=== PATIENT | male | born 1995 | race African-American/Black ===

== ENCOUNTER 2019-11-09 08:36 | Emergency (ER) | payer SELFPAY ==
[~2019-11-09] VITALS: Ht 193 cm; Wt 85.5 kg
[~2019-11-09 08:36] MED LIST: ALBU8HFA PO; AZIT-21 PO; LIDO20SO16 PO
[2019-11-09] MEDS ORDERED: ketorolac trometh. 30mg/ml inj. IM ONE (10:55)
[2019-11-09] MEDS ORDERED: SUMAtriptan 25 MG tablet PO ONE (10:55)
[2019-11-09] MEDS ORDERED: diphenhydrAMINE 25mg capsule PO ONE (10:55)
[2019-11-09] MEDS ORDERED: ondansetron 4mg rapidly disintigrating tab PO ONE (11:00)
[2019-11-09 11:25] VITALS: BP 159/86
[2019-11-09] MEDS ORDERED: IBUP-1985 PO (11:59)
== END 2019-11-09 12:35 | disposition home or self-care (01) ==
LOC: ER 08:37
DX: R51 Headache (principal); H53.149 Visual discomfort, unspecified; R07.89 Other chest pain; R11.0 Nausea; F12.90 Cannabis use, unspecified, uncomplicated; Z88.5 Allergy status to narcotic agent; Z79.2 Long term (current) use of antibiotics; Z79.899 Other long term (current) drug therapy
CPT/HCPCS: 71045; 87502; 87503; 93005; 96372; 99285; J1885; Q0163

== ENCOUNTER 2020-10-21 16:36 | Emergency (ER) | payer MEDICAID ==
[~2020-10-21] VITALS: Ht 190.5 cm; Wt 94.0 kg
[~2020-10-21 16:36] MED LIST changes: +IBUP-1985 PO
[2020-10-21 17:14] LABS: BASOPHILS # (AUTO) 0.1 X10'3 (0-0.2); BASOPHILS % (AUTO) 1.1 % (0-1); EOSINOPHILS # (AUTO) 0.2 X10'3 (0-0.9); EOSINOPHILS % (AUTO) 2.6 % (0-6); HEMATOCRIT 41.8 % (42.0-52.0); HEMOGLOBIN 14.3 g/dl (14.0-17.9); LYMPHOCYTES # (AUTO) 2.6 X10'3 (1.1-4.8); LYMPHOCYTES % (AUTO) 35.7 % (21-51); MEAN CORPUSCULAR HEMOGLOBIN 29.6 PG (27.0-31.0); MEAN CORPUSCULAR HGB CONC 34.2 g/dL (33.0-36.5); MEAN CORPUSCULAR VOLUME 86.5 FL (78-98); MONOCYTES # (AUTO) 0.7 X10'3 (0-0.9); MONOCYTES % (AUTO) 9.8 % (2-12); NEUTROPHILS # (AUTO) 3.8 X10'3 (1.8-7.7); NEUTROPHILS % (AUTO) 50.8 % (42-75); PLATELET COUNT 267 X10'3 (140-440); RED BLOOD COUNT 4.83 X10'6 (4.70-6.10); RED CELL DISTRIBUTION WIDTH 13.3 % (11.5-14.5); WHITE BLOOD COUNT 7.4 X10'3 (4.5-11.0)
[2020-10-21 17:27] LABS: ALANINE AMINOTRANSFERASE 35 U/L (12-78); ALBUMIN 4.3 G/DL (3.4-5.0); ALBUMIN/GLOBULIN RATIO 1.3 (1.1-1.5); ALKALINE PHOSPHATASE 76 IU/L (46-116); ANION GAP 7 (8-16); ASPARTATE AMINO TRANSFERASE 28 U/L (10-37); BILIRUBIN,TOTAL 0.3 MG/DL (0.1-1.0); BLOOD UREA NITROGEN 24 MG/DL (7-18); BUN/CREATININE RATIO 21.8 (5.4-32.0); CALCIUM 9.4 MG/DL (8.5-10.1); CHLORIDE 105 MMOL/L (99-107); ETHANOL < 0.010 GM/DL (0.0-0.010); GLUCOSE 104 MG/DL (70-104); POTASSIUM 3.8 MMOL/L (3.5-5.1); SODIUM 142 MMOL/L (135-145); TOTAL CARBON DIOXIDE 29.7 MMOL/L (24-32); TOTAL PROTEIN 7.6 G/DL (6.4-8.2); eGFR > 90 ML/MIN
[2020-10-21] MEDS ORDERED: NO HOME MEDS (17:42)
--- NOTE | 2020-10-21 17:50 | NUR ---
Khalida monae in [facility] - 10/21/20 at 1750 by SIMIN CALL FROM LAB C-DIFF NEG
--- NOTE | 2020-10-21 17:52 | NUR ---
PT ASKED TO PROVIDE A URINE SAMPLE, PT REPORTS THAT HE DOES NOT HAVE TO GO NOW.
--- NOTE | 2020-10-21 17:58 | NUR ---
PT AMBULATED FROM BED 8 TO BED 20 ESCORTED BY SHIRIN ALVAREZ
--- NOTE | 2020-10-21 18:19 | NUR ---
PT RESTING ON BACK RR EQUAL AND UNLABORED
--- NOTE | 2020-10-21 19:00 | NUR ---
Pt resting quietly, respirations normal, no s/s of distress.
--- NOTE | 2020-10-21 20:00 | NUR ---
Urine obtained and packet sent.
[2020-10-21 20:32] LABS: URINE AMPHETAMINE SCREEN NEGATIVE (Neg); URINE BARBITUATE SCREEN NEGATIVE (Neg); URINE BENZODIAZEPINES SCREEN NEGATIVE (Neg); URINE CANNABINOID SCREEN POSITIVE (Neg); URINE COCAINE SCREEN NEGATIVE (Neg); URINE METHADONE SCREEN NEGATIVE (Neg); URINE OPIATE SCREEN NEGATIVE (Neg); URINE PHENCYCLIDINE SCREEN NEGATIVE (Neg)
--- NOTE | 2020-10-21 20:45 | NUR ---
URINE SAMPLE OBTAINED AND SENT TO LAB
--- NOTE | 2020-10-21 21:00 | NUR ---
Pt evaluated my [facility]. Pt will be reevaluated tomorrow for 5150. Pt on 1798.
--- NOTE | 2020-10-21 21:05 | NUR ---
PACKET FAXED TO [facility]
--- NOTE | 2020-10-21 22:00 | NUR ---
Pt requested something for his back pain stating that sleeping in cot for so long is uncomfortable. Orders obtained.
[2020-10-21] MEDS ORDERED: cyclobenzaprine 10mg tablet PO ONE (22:35)
[2020-10-21] MEDS ORDERED: naproxen 500mg tablet PO ONE (22:35)
--- NOTE | 2020-10-21 23:00 | NUR ---
Pt given sandwich to take with his meds.
--- NOTE | 2020-10-22 01:00 | NUR ---
Pt resting quietly, respirations normal, no s/s of distress.
--- NOTE | 2020-10-22 02:00 | NUR ---
Pt resting quietly, respirations normal, no s/s of distress.
--- NOTE | 2020-10-22 03:58 | NUR ---
Pt resting quietly, respirations normal, no s/s of distress.
[2020-10-22 05:18] VITALS: BP 115/63
--- NOTE | 2020-10-22 06:25 | NUR ---
patient resting quietly in bed, no signs of distress. will continue to monitor.
--- NOTE | 2020-10-22 08:28 | NUR ---
patient talking with [facility].
== END 2020-10-22 09:00 | disposition home or self-care (01) ==
LOC: ER 16:37
DX: R45.851 Suicidal ideations (principal); F32.9 Major depressive disorder, single episode, unspecified; Z20.822 Contact with and (suspected) exposure to COVID-19; J45.909 Unspecified asthma, uncomplicated; F41.9 Anxiety disorder, unspecified; F12.90 Cannabis use, unspecified, uncomplicated; Z72.89 Other problems related to lifestyle; Z88.5 Allergy status to narcotic agent
CPT/HCPCS: 36415; 80053; 80305; 80320; 85025; 87426; 99285